=== PATIENT | male | born 1970 | race Caucasian/White ===

== ENCOUNTER 2019-11-06 09:09 | Day surgery (SDC) | payer OTHER ==
[2019-11-05 08:58] VITALS: BMI 24.6
[2019-11-06] MEDS ORDERED: PROPOFOL 20 ML ONE (11:04)
[2019-11-06] MEDS ORDERED: MIDAZOLAM HCL 2 MG/2 ML SINGLE DOSE VIAL ONE (11:05)
[2019-11-06] MEDS ORDERED: LIDOCAINE HCL/PF 2% SDV 5ML VIAL ONE (11:06)
--- NOTE | 2019-11-06 11:19 | OP ---
Operative Note - Note: Operative Date: 11/06/19 Pre-Operative Diagnosis: penile chordee, phimosis, balinitis Operation: penoplasty, circ., penile block Findings: scarred frenulum, phimosis and balanitis Post-Operative Diagnosis: Same as Pre-op Surgeon: Alejandra Coppola Anesthesia: General, Local Specimens Removed: penile scar tissue, foreskin Estimated Blood Loss (mls): 20 Drains, Volume Out (mls): 0 Blood Volume Replaced (mls): 0 Fluid Volume Replaced (mls): 0 Operative Report Dictated: Yes
[2019-11-06] MEDS ORDERED: ONDANSETRON 4 MG/2 ML VIAL IVPUSH PRN (11:25)
[2019-11-06] MEDS ORDERED: oxyCODONE HCL 5 MG TABLET PO PRN (11:25)
[2019-11-06] MEDS ORDERED: LACTATED RINGERS SOLUTION 1,000 ML IV SCH (11:30)
[2019-11-06] MEDS ORDERED: ceFAZolin SODIUM 1 GM VIAL IVPB ONE (11:37)
[2019-11-06] MEDS ORDERED: BUPIVACAINE HCL/PF 0.5% (5MG/ML) 10 ML VIAL IJ ONE ×2 (11:43)
--- NOTE | 2019-11-06 11:50 | CONS ---
DATE OF CONSULTATION: DATE OF DICTATION: 11/06/2019 HISTORY: Patient is a 49-year-old male with history of recurrent balanitis and tight foreskin. He also has history of recurrent urinary tract infections with dysuria, frequency. He denies any hematuria. He does have painful intercourse due to bowing of the penis secondary to scarring of his frenulum. Patient is status post inguinal hernia repair as well as a varicocelectomy. He denies any ethanolism, tobacco, alcohol, or allergies. He does have history of high blood pressure. PHYSICAL EXAMINATION: General: Reveals a well-developed, adult male. Abdomen: Soft. There is no CVA tenderness. Genitourinary: Genitalia are atraumatic. Phallus is phimotic. There appears to be chronic balanitis with scarring to frenulum. Testes are normal in size and consistency. Prostate is 2+, smooth, benign, nontender. Extremities: Reveal full range of motion with no cyanosis, clubbing, or edema. DIAGNOSTIC DATA: PSA is 0.6. BUN 16, creatinine 0.6. IMPRESSION: At present is balanitis chordee and phimosis. PLAN: Circumcision, penoplasty. This was explained to patient, and he agrees. Barb [id number]
[2019-11-06] MEDS ORDERED: BACITRACIN 15 GM TUBE TOPICAL OINTMENT TP ONE (12:06)
[2019-11-06 14:36] VITALS: BP 118/69; PULSE 59; TEMP 98.1
--- NOTE | 2019-11-07 10:56 | OP ---
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 OPERATIVE PROCEDURE: Penoplasty, circumcision, and penile block. ANESTHESIA: Neuroleptic and penile block. DESCRIPTION OF PROCEDURE: Under above-stated anesthesia, patient is prepped and draped in the usual sterile manner. He is placed in the supine position. A tourniquet was placed at the base of the penis, and a 25-gauge butterfly was inserted into the right corpora. Approximately 60 mL of normal saline was injected. This revealed a curve of the glans penis in an SST-type deformity. Therefore, a subcoronal circumferential incision was made. This was carried down through skin and subcutaneous tissue. Using both blunt and sharp dissection, the entire penile shaft was degloved. Again, hemostasis was secured with electrocoagulation and 6-0 Vicryl ties. The scarred frenulum was excised using a Chowdhury scissors. Proximal and distal ends were suture ligated using 6-0 Vicryl suture ligatures. A repeat artificial erection revealed straightening of the glans penis. Excess foreskin was then excised in a circumferential manner. Skin from the glans was approximated to skin from the shaft using 5-0 Vicryl suture ligatures. A repeat artificial erection was performed, and this revealed straightening of the penis. Pressure dressing was applied. The neurovascular bundle was then infiltrated with Marcaine for long-term analgesia. The patient tolerated the procedure well. He returned to the recovery room in good condition. Barb [id number]
--- NOTE | 2019-11-08 14:15 | PATH ---
Surgical Pathology Report Patient Name: LISANDRO QUINTANILLA [facility]. Rec. #: [id number] /Age/Gender: 1970 (Age: 49) / M Account: [id number] Location: [facility] SURGICAL Taken: 11/06/2019 Received: 11/06/2019 Reported: 11/08/2019 Physicians: Alejandra Coppola M.D. Specimen(s) Received FORESKIN Clinical History Phimosis, balanitis Final Diagnosis FORESKIN, CIRCUMCISION AND PENOPLASTY: GENITAL SKIN WITHOUT SIGNIFICANT PATHOLOGIC FINDINGS. Electronically Signed Diana Jimenez M.D. Gross Description Received in formalin labeled "foreskin," is a 4.7 x 3.5 x 0.3 cm clarke, wrinkled portion of skin, consistent with foreskin. Gaming Investigator sections are submitted in one cassette. /11/07/2019 saudi11/07/2019
== END 2019-11-06 14:00 | disposition home or self-care (01) ==
LOC: JASU-SURG 09:09
PROVIDERS: ATTEND Urology
PROC: 0VTTXZZ Resection of Prepuce, External Approach (ICD-10-PCS; principal; 2019-11-06 11:30)
PROC: 0VNS0ZZ Release Penis, Open Approach (ICD-10-PCS; 2019-11-06 11:30)
DX: N47.1 Phimosis (principal); N48.1 Balanitis; N48.89 Other specified disorders of penis
CPT/HCPCS: 94760